=== PATIENT | female | born 1990 | race Caucasian/White ===

== ENCOUNTER 2017-01-27 17:10 | Emergency (ER) | payer MEDICAID ==
[~2017-01-27] VITALS: Ht 162.6 cm; Wt 54.9 kg
[2017-01-27] MEDS ORDERED: SODIUM CHLORIDE 0.9% 1,000ML IVBOLUS ONE (17:30)
[2017-01-27] MEDS ORDERED: ONDANSETRON 2MG/ML, 2ML IVPush ONE (17:30)
[2017-01-27 17:58] LABS: ASPARTATE AMINO TRANSFERASE 14 U/L (15-37); BLOOD UREA NITROGEN 14 mg/dL (7-18)
[2017-01-27] MEDS ORDERED: ONDANSETRON 2MG/ML, 2ML ONE (18:08)
[2017-01-27 19:25] LABS: PATH.CAST-FLAG NOT PRESENT; SPERM-FLAG NOT PRESENT; SRC-FLAG NOT PRESENT; XTAL-FLAG NOT PRESENT; YLC-FLAG NOT PRESENT
[2017-01-27 20:07] VITALS: BP 137/89
[2017-01-27] MEDS ORDERED: KETOROLAC 30 MG/1 ML IVPush ONE (20:30)
[2017-01-27] MEDS ORDERED: KETOROLAC 30 MG/1 ML ONE (20:42)
== END 2017-01-27 20:57 | disposition home or self-care (01) ==
LOC: ED 18:06
DX: R19.7 Diarrhea, unspecified (principal); R10.30 Lower abdominal pain, unspecified
CPT/HCPCS: 36415; 74022; 76830; 80053; 81003; 84703; 85025; 85379; 93005; 96374; 96375; 99285; J1885; J2405; J7030